=== PATIENT | male | born 1985 | race Two or more races ===

== ENCOUNTER 2017-02-04 12:58 | Emergency (ER) | payer OTHER ==
[~2017-02-04] VITALS: Ht 172.7 cm; Wt 77.1 kg
[2017-02-04 13:22] VITALS: BP 132/92
[2017-02-04] MEDS ORDERED: NKM (13:32)
[2017-02-04] MEDS ORDERED: Lidocaine 1% 10mg/ml/Epi 0.005mg/ml 30ml vial INJ ONE (13:45)
[2017-02-04] MEDS ORDERED: Morphine Sulfate 2mg/ml Inj IVP ONE (13:45)
[2017-02-04] MEDS ORDERED: TdaP Vaccine 0.5ml Syr IM ONE (13:45)
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
[2017-02-04] MEDS ORDERED: Bacitracin Oint UD TOPIC ONE (14:45)
[2017-02-04] MEDS ORDERED: BACITRACIN-P28.35 GM TP (15:11)
[2017-02-04] MEDS ORDERED: TYLENOL EXTRA500 MG ORAL (15:11)
[2017-02-04] MEDS ORDERED: CEPHALEXIN500 MG ORAL (15:11)
[2017-02-04] MEDS ORDERED: Ketorolac 30mg Inj IM ONE (15:30)
--- NOTE | 2017-02-05 10:46 | Diagnostic Imaging Report ---
Indication: Trauma Technique: Contiguous 5 mm thick transaxial imaging of the head obtained in a Siemens Sensation [address] scanner. Soft tissue and bone windows generated. Total Dose length Product (DLP): [address] Dose Index Volume (CTDIvol): 70.38 mGy Comparison: none Findings: The size and configuration of the cortical sulci, basal cisterns, and ventricles are within normal limits for age. There is no mass effect, midline shift, or edema identified. There is no evidence of acute hemorrhage or abnormal intra-axial or extra-axial fluid collections. The bones and soft tissues are unremarkable. Impression: No mass effect, edema or acute bleed. The CT scanner at [facility] is accredited by the [employer] and the scans are performed using protocols designed to limit radiation exposure to as low as reasonably achievable to attain images of sufficient resolution adequate for diagnostic evaluation.
--- NOTE | 2017-02-05 10:48 | Diagnostic Imaging Report ---
Indication: Trauma Technique: Continuous helical transaxial imaging of the maxillofacial structures obtained without intravenous contrast administration. Coronal 2-D reformats were also obtained. Study obtained in a Siemens sensation [address] Total Dose length Product (DLP): [address] Dose Index Volume (CTDIvol): 28 mGy Comparison: None Findings: No acute fractures identified. There is minimal mucosal thickening within the paranasal sinuses. There is laceration left periorbital soft tissue. No radiopaque foreign body. Orbits appear normal bilaterally. Impression: No acute fracture Left periorbital soft tissue laceration The CT scanner at [facility] is accredited by the [employer] and the scans are performed using protocols designed to limit radiation exposure to as low as reasonably achievable to attain images of sufficient resolution adequate for diagnostic evaluation.
--- NOTE | 2017-02-06 08:09 | Diagnostic Imaging Report ---
Indication: Pain Comparison: None Findings: Two-view left clavicle obtained. There is no fracture or obvious malalignment of the left clavicle identified. Impression: No acute injury
== END 2017-02-04 15:34 | disposition home or self-care (01) ==
LOC: EMR 14:00
DX: S01.81XA Laceration without foreign body of other part of head, initial encounter (principal); S00.83XA Contusion of other part of head, initial encounter; S42.025A Nondisplaced fracture of shaft of left clavicle, initial encounter for closed fracture; Y04.2XXA Assault by strike against or bumped into by another person, initial encounter; Y99.0 Civilian activity done for income or pay; Z91.013 Allergy to seafood; Z23 Encounter for immunization
CPT/HCPCS: 12011; 29240; 70450; 70486; 73000; 90471; 90715; 96372; 96374; 96375; 99284; J1885; J2270; J2405